=== PATIENT | female | born 1995 | race Caucasian/White ===

== ENCOUNTER 2019-01-04 16:25 | Observation (INO) | payer MEDICAID, OTHER ==
[~2019-01-04] VITALS: Ht 162.6 cm; Wt 79.8 kg
[2019-01-04] MEDS ORDERED: PREN1TAB78 MT (17:07)
== END 2019-01-04 17:15 | disposition home or self-care (01) ==
LOC: 8 EST LDRP 16:25
PROVIDERS: ADMIT Specialist; ATTEND Specialist
DX: O42.92 Full-term premature rupture of membranes, unspecified as to length of time between rupture and onset of labor (principal); O26.893 Other specified pregnancy related conditions, third trimester; M54.9 Dorsalgia, unspecified; Z3A.39 39 weeks gestation of pregnancy
CPT/HCPCS: 99281; G0378

== ENCOUNTER 2019-01-13 02:50 | Inpatient (IN) | payer OTHER ==
[~2019-01-13] VITALS: Ht 162.6 cm; Wt 81.2 kg
[~2019-01-13 02:50] MED LIST: PREN1TAB78 MT
[2019-01-13] MEDS ORDERED: DEXT 5%/LR + PITOCIN 20UNITS/L 1,000 ML IV SCH (03:39)
[2019-01-13] MEDS ORDERED: BUTORPHANOL TARTRATE 2 MG/ML VIAL IV PRN (03:45)
[2019-01-13] MEDS ORDERED: NALOXONE HCL 0.4 MG/ML 1ML VIAL IM PRN (03:45)
[2019-01-13] MEDS ORDERED: METHYLERGONOVINE MALEATE 0.2 MG/ML IM PRN (03:45)
[2019-01-13] MEDS ORDERED: LIDOCAINE HCL 1% 20ML VIAL (Pyxis) INJ INFIL SCH (03:45)
[2019-01-13] MEDS ORDERED: AMPICILLIN 2,000 MG in SODIUM CHLORIDE 0.9% 100 ML IV SCH (04:00)
[2019-01-13 04:25] LABS: CLARITY URINE CLEAR (CLEAR); COLOR URINE YELLOW (YELLOW); KETONES URINE NEGATIVE (NEGATIVE); LEUKOCYTE ESTERASE URINE 2+ (NEGATIVE); NITRITE URINE NEGATIVE (NEGATIVE); OCCULT BLOOD URINE NEGATIVE (NEGATIVE); PROTEIN URINE NEGATIVE (NEGATIVE); SPECIFIC GRAVITY URINE 1.013 (1.005-1.030); UROBILINOGEN URINE 0.2 E.U./dL (0.2-1.0)
[2019-01-13 04:44] LABS: BASOPHILS % 0.5 % (0.0-2.0); CHLORIDE 108 mEq/L (98-107); EOSINOPHILS % 0.8 % (0.0-5.0); HEMOGLOBIN. 11.6 g/dL (12.0-16.0); LYMPHOCYTES % 23.4 % (20.0-50.0); MEAN CORPUSCULAR HEMOGLOBIN 29.4 pg (28.0-32.0); MEAN PLATELET VOLUME 9.5 fl (7.4-10.4); MONOCYTES % 7.4 % (2.0-8.0); NEUTROPHILS % 67.9 % (40.0-76.0); PLATELET 239 x1000/uL (130-400); RED BLOOD CELL COUNT 3.94 mill/uL (4.2-5.4); RED CELL DISTRIBUTION WIDTH 14.1 % (11.6-14.6)
[2019-01-13 05:00] LABS: D-DIMER 0.77 mg/L FEU (<0.50); INR 0.9; PARTIAL THROMBOPLASTIN TIME 28.7 sec (23.4-31.0); PROTHROMBIN TIME 9.4 sec (9.6-11.0)
[2019-01-13] MEDS: LACTATED RINGERS 1,000 ML IV SCH ×2 (05:05→05:49)
[2019-01-13 05:14] LABS: *AMPHETAMINES SCREEN URINE NEGATIVE (NEGATIVE); *BARBITURATES SCREEN URINE NEGATIVE (NEGATIVE); *BENZODIAZEPINES SCREEN URINE NEGATIVE (NEGATIVE); METHADONE URINE SCREEN NEGATIVE (NEGATIVE); OPIATES URINE SCREEN NEGATIVE (NEGATIVE)
[2019-01-13 05:15] LABS: *COCAINE SCREEN URINE NEGATIVE (NEGATIVE); CANNABINOID URINE SCREEN NEGATIVE (NEGATIVE); PHENCYCLIDINE URINE SCREEN NEGATIVE (NEGATIVE)
[2019-01-13] MEDS ORDERED: AMPICILLIN 1,000 MG in SODIUM CHLORIDE 0.9% 50 ML IV SCH (10:00)
[2019-01-13] MEDS ORDERED: TETANUS, DIPHTHERIA, PERTUSSIS VAC/PF 0.5ML (>7YR OLD) IM ONE (11:15)
[2019-01-13] MEDS ORDERED: HEMORRHOIDAL SUPP PR PRN (11:15)
[2019-01-13] MEDS ORDERED: IBUPROFEN 400MG TABLET PO PRN (11:15)
[2019-01-13] MEDS ORDERED: BENZOCAINE/LANOLIN/ALOE VERA SPRAY TOP PRN (11:15)
[2019-01-13] MEDS ORDERED: GLYCERIN/WITCH HAZEL LEAF MEDICATED PAD TOP PRN (11:15)
[2019-01-13] MEDS ORDERED: LANOLIN OINT 7GM TUBE TOP PRN (11:15)
[2019-01-13] MEDS ORDERED: ACETAMINOPHEN WITH CODEINE 300/30MG TABLET PO PRN (11:15)
[2019-01-13] MEDS ORDERED: DIPHENHYDRAMINE 25MG CAPSULE PO PRN (11:15)
[2019-01-13] MEDS: DEXT 5%/LR + PITOCIN 20UNITS/L 1,000 ML IV SCH ×2 (11:37→12:25)
[2019-01-13 13:00] VITALS: BP 112/70
[2019-01-13] MEDS: IBUPROFEN 800MG TABLET PO PRN (13:46)
[2019-01-13 14:00] VITALS: BP 127/81
[2019-01-13 19:40] VITALS: BP 143/67
[2019-01-13 20:11] LABS: HEPATITIS B SURFACE ANTIGEN NEGATIVE
[2019-01-13] MEDS ORDERED: DOCUSATE SODIUM 100MG CAPSULE PO SCH (21:00)
[2019-01-14 00:10] VITALS: BP 121/76
[2019-01-14 07:26] LABS: BASOPHILS % 0.4 % (0.0-2.0); EOSINOPHILS % 0.6 % (0.0-5.0); HEMOGLOBIN. 10.5 g/dL (12.0-16.0); LYMPHOCYTES % 21.5 % (20.0-50.0); MEAN CORPUSCULAR HEMOGLOBIN 30.1 pg (28.0-32.0); MEAN PLATELET VOLUME 9.1 fl (7.4-10.4); MONOCYTES % 6.2 % (2.0-8.0); NEUTROPHILS % 71.3 % (40.0-76.0); PLATELET 208 x1000/uL (130-400); RED BLOOD CELL COUNT 3.48 mill/uL (4.2-5.4); RED CELL DISTRIBUTION WIDTH 14.1 % (11.6-14.6)
[2019-01-14] MEDS ORDERED: FERROUS SULFATE 325MG TABLET PO SCH (07:30)
[2019-01-14] MEDS ORDERED: MEDROXYPROGESTERONE ACETATE 150MG/ML VIAL IM ONE (07:30)
[2019-01-14 08:00] VITALS: BP 130/64
[2019-01-14] MEDS ORDERED: PRENATAL VIT/FE FUMARATE/FA TABLET PO SCH (09:00)
[2019-01-14 17:00] VITALS: BP 127/79
[2019-01-14 20:00] VITALS: BP 126/84
[2019-01-14] MEDS: IBUPROFEN 800MG TABLET PO PRN (22:08)
[2019-01-15] VITALS: BP 135/74
[2019-01-15 08:00] VITALS: BP 127/77
[2019-01-15] MEDS ORDERED: MEASLES,MUMPS&RUBELLA VACCINE 1 VIAL SUBCUT ONE (09:30)
== END 2019-01-15 13:20 | disposition home or self-care (01) | DRG 560 ==
LOC: 8 EST LDRP 02:50 → OBSVTOIN 02:50 → 8EST 12:48
PROVIDERS: ADMIT Obstetrics & Gynecology; ATTEND Obstetrics & Gynecology
PROC: 0W8NXZZ Division of Female Perineum, External Approach (ICD-10-PCS; principal; 2019-01-13)
PROC: 10E0XZZ Delivery of Products of Conception, External Approach (ICD-10-PCS; 2019-01-13)
PROC: 0HQ9XZZ Repair Perineum Skin, External Approach (ICD-10-PCS; 2019-01-13)
DX: O76 Abnormality in fetal heart rate and rhythm complicating labor and delivery (principal); D64.9 Anemia, unspecified; Z37.0 Single live birth; J45.909 Unspecified asthma, uncomplicated; O99.52 Diseases of the respiratory system complicating childbirth; O77.0 Labor and delivery complicated by meconium in amniotic fluid; O70.0 First degree perineal laceration during delivery; Z3A.40 40 weeks gestation of pregnancy; O90.81 Anemia of the puerperium
CPT/HCPCS: 36415; 80305; 84550; 85379; 85384; 86592; 86703; 86762; 86850; 86900; 87340; 90707; 99281; J0290; J0595; J1050; J2590; J3490; J7050; J7120